=== PATIENT | female | born 1995 ===

== ENCOUNTER 2020-01-14 09:30 | Outpatient (REF) | payer OTHER, SELFPAY ==
[2020-01-15 10:58] LABS: BV Int Neg Control Negative (Negative); BV Int Pos Control Positive (Positive)
[2020-01-15 11:06] LABS: CT PCR NOT DETECTED (Not Detect.); NG PCR NOT DETECTED (Not Detect.)
== END 2020-01-14 09:31 | disposition home or self-care (01) ==
LOC: HO.LAB 09:30
PROVIDERS: Visit Provider Advanced Practice Midwife
DX: Z01.419 Encounter for gynecological examination (general) (routine) without abnormal findings (principal); N93.9 Abnormal uterine and vaginal bleeding, unspecified; Z11.3 Encounter for screening for infections with a predominantly sexual mode of transmission
CPT/HCPCS: 87480; 87491; 87510; 87591; 87660; 88142

== ENCOUNTER 2020-01-16 08:21 | Outpatient (REF) | payer OTHER, SELFPAY | END 2020-01-16 08:22 | disposition home or self-care (01) | LOC: HO.LAB 08:21 | PROVIDERS: Visit Provider Advanced Practice Midwife | DX: Z13.89 Encounter for screening for other disorder (principal) ==

== ENCOUNTER 2020-02-03 10:51 | Outpatient (REF) | payer OTHER, SELFPAY ==
--- NOTE | 2020-02-03 10:54 | US_ITS ---
EXAMINATION: PELVIC ULTRASOUND CLINICAL INFORMATION: Abnormal vaginal bleeding COMPARISON: None TECHNIQUE: Transabdominal and transvaginal pelvic ultrasound was formed. Transvaginal exam was performed for better visualization of the uterus and ovaries. FINDINGS: The uterus is anteverted and measures 7.3 x 3.4 x 5.2 cm in dimension. No focal uterine lesion is seen. Endometrial thickness is normal estimated at 0.5 cm. The cervix is normal. The ovaries are normal. The right ovary measures 3 x 1.9 x 2.1 cm. The left ovary measures 3 x 1.8 x 1.7 cm. There is no fluid in the pelvis. US/US pelvic complete IMPRESSION: Normal pelvic ultrasound.
--- NOTE | 2020-02-03 10:54 | US_ITS ---
EXAMINATION: PELVIC ULTRASOUND CLINICAL INFORMATION: Abnormal vaginal bleeding COMPARISON: None TECHNIQUE: Transabdominal and transvaginal pelvic ultrasound was formed. Transvaginal exam was performed for better visualization of the uterus and ovaries. FINDINGS: The uterus is anteverted and measures 7.3 x 3.4 x 5.2 cm in dimension. No focal uterine lesion is seen. Endometrial thickness is normal estimated at 0.5 cm. The cervix is normal. The ovaries are normal. The right ovary measures 3 x 1.9 x 2.1 cm. The left ovary measures 3 x 1.8 x 1.7 cm. There is no fluid in the pelvis. US/US transvaginal IMPRESSION: Normal pelvic ultrasound.
== END 2020-02-03 10:52 | disposition home or self-care (01) ==
LOC: HO.US 10:51
PROVIDERS: Visit Provider Advanced Practice Midwife
DX: N93.9 Abnormal uterine and vaginal bleeding, unspecified (principal)
CPT/HCPCS: 76830; 76856

== ENCOUNTER 2020-02-03 11:53 | Outpatient (REF) | payer OTHER, SELFPAY ==
[2020-02-04 07:48] LABS: Syphilis Screen Nonreactive (Nonreactive)
[2020-02-04 08:19] LABS: HBsAGNum1 0.22 S/CO (0.00-0.99); Hepatitis B Surface Antigen Negative (Negative)
[2020-02-04 08:36] LABS: HIV AB/AG Nonreactive (Nonreactive); HIV Num 1 0.24 S/CO (0.00-0.99); ~HepC Num1 0.09 S/CO (0.00-0.79); ~Hepatitis C Antibody Nonreactive (Nonreactive)
== END 2020-02-03 11:54 | disposition home or self-care (01) ==
LOC: HO.LAB 11:53
PROVIDERS: Visit Provider Advanced Practice Midwife
DX: Z11.3 Encounter for screening for infections with a predominantly sexual mode of transmission (principal)
CPT/HCPCS: 86780; 86803; 87340; 87389

== ENCOUNTER → 2020-02-17 10:50 | Outpatient (BNVA) | payer OTHER, SELFPAY | PROVIDERS: Visit Provider Advanced Practice Midwife | DX: Z76.89 Persons encountering health services in other specified circumstances (principal) ==